=== PATIENT | female | born 1950 | race Asian ===

== ENCOUNTER 2016-08-02 19:13 | Inpatient (IN) | payer MEDICARE ==
[~2016-08-02] VITALS: Ht 139.7 cm; Wt 45.6 kg
[~2016-08-02 19:13] MED LIST: GLIM1TAB2 PO; NITR100C6; SIMV40TA3 PO
[2016-08-02 19:38] LABS: BASO # 0.1 x10^3/uL (0.0-0.2); BASO % 1 % (0-3); EOS % 1 % (0-3); HEMATOCRIT 40.5 % (36.0-47.0); HEMOGLOBIN 13.4 g/dL (12.0-15.5); LYMPH # 2.4 x10^3/uL (1.0-4.8); LYMPH % 23 % (24-48); MEAN CORPUSCULAR HEMOGLOBIN 29 pg (25-35); MEAN CORPUSCULAR HGB CONC 33 g/dL (31-37); MEAN CORPUSCULAR VOLUME 88 fL (79-100); MONO % 10 % (0-9); NEUT % 65 % (31-73); PLATELET COUNT 292 x10^3/uL (140-400); RED BLOOD COUNT 4.59 x10^6/uL (3.50-5.40); RED CELL DISTRIBUTION WIDTH 13.8 % (11.5-14.5); WHITE BLOOD COUNT 10.4 x10^3/uL (4.0-11.0)
[2016-08-02 20:11] LABS: CALCIUM 9.8 mg/dL (8.5-10.1); GFR 55.1; POTASSIUM 3.3 mmol/L (3.5-5.1)
[2016-08-02] MEDS ORDERED: IOHEXOL 300 MG/ML 100ML VIAL. IV ONE (21:30)
[2016-08-02] MEDS ORDERED: CONTRAST GIVEN MC PRN (21:45)
--- NOTE | 2016-08-02 22:40 | PHYS DOC ---
Past Medical History Past Medical History: Diabetes-Type II, High Cholesterol Past Surgical History: Other Additional Past Surgical Histo: left FA repair Adult General Chief Complaint Chief Complaint: CHEST PAIN HPI HPI 66-year-old female who states she's had worsening chest pressure and pain with some dyspnea throughout the day. She localizes her chest pressure to the right side of her chest and states it does radiate into her back somewhat. She denies any history significant cardiac disease. She denies any history of lung problems. Review of Systems Review of Systems Constitutional: Denies fever or chills [] Eyes: Denies change in visual acuity, redness, or eye pain [] HENT: Denies nasal congestion or sore throat [] Respiratory: Denies cough, has shortness of breath [] Cardiovascular: No additional information not addressed in HPI [] GI: Denies abdominal pain, nausea, vomiting, bloody stools or diarrhea [] : Denies dysuria or hematuria [] Musculoskeletal: Denies back pain or joint pain [] Integument: Denies rash or skin lesions [] Neurologic: Denies headache, focal weakness or sensory changes [] Endocrine: Denies polyuria or polydipsia [] Current Medications Current Medications Current Medications Medications (Trade) Dose Ordered Sig/Kaylee Start Time Stop Time Status Last Admin Dose Admin Info (Do NOT chart on this entry -- for MONITORING) 1 each PRN DAILY PRN 08/02/16 21:45 08/04/16 21:44 DC Iohexol (Omnipaque 300 Mg/ml) 75 ml 1X ONCE 08/02/16 21:30 08/02/16 21:32 DC 08/02/16 21:38 75 ML Allergies Allergies Allergies Coded Allergies Type Severity Reaction Last Updated Verified No Known Drug Allergies 07/17/16 No Physical Exam Physical Exam Constitutional: Well developed, well nourished, no acute distress, non-toxic appearance. [] HENT: Normocephalic, atraumatic, bilateral external ears normal, oropharynx moist, no oral exudates, nose normal. [] Eyes: PERRLA, EOMI, conjunctiva normal, no discharge. [] Neck: Normal range of motion, no tenderness, supple, no stridor. [] Cardiovascular:Heart rate regular rhythm, no murmur [] Lungs & Thorax: Bilateral breath sounds clear to auscultation [] Abdomen: Bowel sounds normal, soft, no tenderness, no masses, no pulsatile masses. [] Skin: Warm, dry, no erythema, no rash. [] Back: No tenderness, no CVA tenderness. [] Extremities: No tenderness, no cyanosis, no clubbing, ROM intact, no edema. [] Neurologic: Alert and oriented X 3, normal motor function, normal sensory function, no focal deficits noted. [] Psychologic: Affect normal, judgement normal, mood normal. [] Current Patient Data Vital Signs Vital Signs Date Time Temp Pulse Resp B/P Pulse Ox O2 Delivery O2 Flow Rate FiO2 08/02/16 22:15 86 14 151/72 96 Room Air 08/02/16 19:16 98.8 98.8 Lab Values Laboratory Tests Test 08/02/16 19:25 08/02/16 19:27 White Blood Count 10.4x10^3/uL (4.0-11.0) Red Blood Count 4.59x10^6/uL (3.50-5.40) Hemoglobin 13.4g/dL (12.0-15.5) Hematocrit 40.5% (36.0-47.0) Mean Corpuscular Volume 88fL (79-100) Mean Corpuscular Hemoglobin 29pg (25-35) Mean Corpuscular Hemoglobin Concent 33g/dL (31-37) Red Cell Distribution Width 13.8% (11.5-14.5) Platelet Count 292x10^3/uL (140-400) Neutrophils (%) (Auto) 65% (31-73) Lymphocytes (%) (Auto) 23% (24-48) L Monocytes (%) (Auto) 10% (0-9) H Eosinophils (%) (Auto) 1% (0-3) Basophils (%) (Auto) 1% (0-3) Neutrophils # (Auto) 6.8x10^3uL (1.8-7.7) Lymphocytes # (Auto) 2.4x10^3/uL (1.0-4.8) Monocytes # (Auto) 1.0x10^3/uL (0.0-1.1) Eosinophils # (Auto) 0.1x10^3/uL (0.0-0.7) Basophils # (Auto) 0.1x10^3/uL (0.0-0.2) D-Dimer (Meghann) 0.77ug/mlFEU (0.00-0.50) H Sodium Level 143mmol/L (136-145) Potassium Level 3.3mmol/L (3.5-5.1) L Chloride Level 102mmol/L (98-107) Carbon Dioxide Level 32mmol/L (21-32) Anion Gap 9 (6-14) Blood Urea Nitrogen 21mg/dL (7-20) H Creatinine 1.0mg/dL (0.6-1.0) Estimated GFR (Cockcroft-Gault) 55.1 Glucose Level 145mg/dL (70-99) H Calcium Level 9.8mg/dL (8.5-10.1) Troponin I Quantitative < 0.017ng/mL (0.000-0.055) POC Troponin I 0.00ng/ml (<0.08) Laboratory Tests 08/02/16 19:25 Laboratory Tests 08/02/16 19:25 EKG EKG EKG as interpreted by me shows a sinus rhythm with rate 86 bpm. There are noted T-wave inversions to leads V2, V3, V4, V5. There are no other acute ST findings on this EKG. There is evidence of a incomplete right bundle-branch block. Radiology/Procedures Radiology/Procedures CTA of chest demonstrated the followin. No evidence of pulmonary embolism or alternative acute pulmonary finding. 2. Mild emphysema and healed granulomatous disease. This includes a partially calcified nodule within the left lung base. 3. 4 mm nodule with possible faint calcification within the left lower lobe, also likely a granuloma. Followup can be performed according to Fleischner society criteria to confirm benignity if clinically indicated. 4. 1.4 cm stone within the right renal pelvis with suspected hydronephrosis, partially excluded from the field of view. There is a small focus of gas within the anterior upper midzone of the right kidney possibly due to recent instrumentation. Portable one view of the chest does not demonstrate any acute abnormality. Course & Med Decision Making Course & Med Decision Making Pertinent Labs and Imaging studies reviewed. (See chart for details) This 58-year-old female who had since of shortness of breath and some mild chest pain and elevated d-dimer had a CTA to rule out any acute pathology. CTA did rule out PE but it did demonstrate some right-sided hydronephrosis and a large renal stone. I indicated these findings to the hospitalist, Dr. López, who agreed to admit the patient for further evaluation and treatment with cardiology consult. EKG did not reveal any acute abnormalities. Her blood work was also nonrevealing including a set of cardiac enzymes. Dragon Disclaimer Dragon Disclaimer This electronic medical record was generated, in whole or in part, using a voice recognition dictation system. Departure Departure Impression: Primary Impression: Dyspnea Additional Impression: Chest pain Disposition: ADMITTED INPATIENT Admitting Physician: Trinidad López Condition: STABLE Referrals: TRINIDAD LÓPEZ MD (PCP) Problem Qualifiers ORVILLE ECKERT DO Aug 02, 2016 22:40
[2016-08-02] MEDS ORDERED: ACETAMINOPHEN 325 MG TABLET. PO PRN (22:45)
[2016-08-02] MEDS ORDERED: ONDANSETRON PF 4 MG/2 ML VIAL. IV PRN (22:45)
[2016-08-02 23:00] VITALS: BP 173/81
[2016-08-02] MEDS ORDERED: ASPIRIN 325 MG TABLET PO ONE (23:00)
--- NOTE | 2016-08-02 23:05 | RAD ---
PROCEDURE CT angiogram of the chest with intravenous contrast. HISTORY Shortness of breath. TECHNIQUE Computed tomographic images of the chest were obtained following the administration of 60 cc Omnipaque 300 intravenous contrast. Three-dimensional maximum intensity projection images were obtained. One or more of the following individualized dose reduction techniques were utilized for this examination: 1. Automated exposure control; 2. Adjustment of the mA and/or kV according to patient size; 3. Use of iterative reconstruction technique. COMPARISON None. FINDINGS There is no evidence of pulmonary embolism. There is no aortic aneurysm or dissection. The left vertebral artery originates directly from the aortic arch, a normal branching variant. There are several prominent mediastinal and hilar lymph nodes, none of which are pathologically enlarged. There is mild biapical pleural-parenchymal scarring. There are few calcified granulomas. There is a nodule with central calcification within the posterior left lower lobe measuring 1.4 cm, also likely a granuloma. There is linear soft tissue density extending toward the left hilum from this lesion, likely postinfectious. There is basilar atelectasis. There is no pneumothorax, effusion or consolidation. There is a 2 mm nodule within the right middle lobe along the pleural fissure, likely a benign intrafissural lymph node. There is a 4 mm nodule within the left lower lobe which may contain faint calcification. There is adjacent partially calcified granuloma along the left pleural fissure. There is no suspicious hepatic lesion. The spleen is unremarkable. The pancreas is unremarkable. There is slight abnormal configuration of the right adrenal gland, likely developmental. There is a 1.4 cm stone within the right renal pelvis with suspected hydronephrosis, partially included on the field of view. There is a 4 mm focus of gas within the anterior upper midzone of the right kidney, possibly due to recent instrumentation. There is aortic and aortic branch vessel atherosclerotic plaque. IMPRESSION 1. No evidence of pulmonary embolism or alternative acute pulmonary finding. 2. Mild emphysema and healed granulomatous disease. This includes a partially calcified nodule within the left lung base. 3. 4 mm nodule with possible faint calcification within the left lower lobe, also likely a granuloma. Followup can be performed according to Fleischner society criteria to confirm benignity if clinically indicated. 4. 1.4 cm stone within the right renal pelvis with suspected hydronephrosis, partially excluded from the field of view. There is a small focus of gas within the anterior upper midzone of the right kidney possibly due to recent instrumentation. Electronically signed by: Deana Aponte (Aug 02, 2016 23:04:00)
[2016-08-02] MEDS ORDERED: POTASSIUM CHLORIDE 20 MEQ TABLET.ER. PO ONE (23:30)
[2016-08-03] VITALS (7 sets, daily range): BP systolic 121–152; BP diastolic 64–83
--- NOTE | 2016-08-03 01:08 | ACF ---
Admission Forms Criteria CARDIOLOGY GRG Clinical Indications for Admission to Inpatient Care ( Place 'X' for any and all applicable criteria): Hospital admission is needed for appropriate care of the patient because of ANY ONE of the following (1): [ ] I. Hemodynamic instability as indicated by ALL of the following (1)(2)(3) (4)(5) [ ]a) Vital signs or other findings not as expected for chronic patient condition or baseline [ ]b) Instability indicated by ANY ONE of the following: [ ]i) Hypotension [ ]ii) Symptomatic Tachycardia unresponsive to treatment ( e.g., analgesia, fluids, sedation as indicated) [ ]iii) Inadequate perfusion indicated by ANY ONE of the following: [ ] 1) Lactic acidosis (> 2 mmol/L) [ ] 2) New abnormal capillary refill (> 3 seconds) [ ] 3) Reduced urine output [ ] 4) New altered mental status [ ]iv) Orthostatic vital sign changes unresponsive to treatment (e.g., fluids) [ ]v) IV inotropic or vasopressor medication required to maintain adequate blood pressure or perfusion [ ] II. Severe heart failure as indicated by ANY ONE of the following(17)(18) [ ]a) Respiratory distress [ ]b) Hypotension [ ]c) Anasarca (refractory to outpatient therapy) [ ]d) Cardiac arrhythmias of immediate concern [ ]e) Myocardial ischemia [ ] III. Cardiac arrhythmias or findings of immediate concern indicated by ANY ONE of the following (19)(20): [ ] a) Heart rhythms that are inherently dangerous or unstable indicated by ANY ONE of the following (21)(22)(23): [ ] i) Resuscitated ventricular fibrillation or cardiac arrest [ ] ii) Ventricular escape rhythm [ ] iii) Sustained ventricular tachycardia (30 seconds or more of ventricular rhythm at greater than 100 beats per minute) [ ] iv) Nonsustained ventricular tachycardia and ANY ONE of the following: [ ] 1) Suspected cardiac ischemia as cause or consequence of ventricular tachycardia [ ] 2) In setting of acute myocarditis [ ] b) Unstable cardiac conduction defects indicated by ANY ONE of the following(23)(24)(25) [ ] i) Type II second-degree atrioventricular block [ ]ii) Third-degree atrioventricular block [ ]iii) New-onset left bundle branch block with suspected myocardial ischemia [ ]c) Any heart rhythm and ANY ONE of the following (21)(22)(26)(27) (28) [ ] i) Continuous long-term ECG monitoring needed (e.g., initiation of drug requiring monitoring for more than 24 hours) [ ] ii) Patient has automatic implanted cardioverter defibrillator that is repeatedly firing, malfunctioning, or in need of immediate adjustment of settings beyond the scope of ambulatory or observation care [ ]d) Heart rhythms of concern due to ANY ONE of the following: [ ] i) Hypotension [ ] ii) Respiratory distress [ ] iii) Association with other significant symptoms (e.g., bradycardia with syncope or ongoing dizziness, supraventricular tachycardia with chest pain (14)(15)(17) [ ] IV. Monitoring for cardiac contusion beyond the scope of observation care needed [A](30)(31)(32) [ ] V. Surgical or device complication (e.g., valve replacement complication , pacemaker dysfunction) (35)(41)(44)(45)(46) [ ] . Inpatient palliative care needed. [B](49) Also use Inpatient Palliative Care Criteria [ ] VII. Nonbacterial thrombotic (marantic) endocarditis (36)(43)(47)(48) [X] VIII. Cardiology condition, symptom, or finding for which emergency and observation care has failed or are not considered appropriate. [ ] IX. Acute valvular disease requiring inpatient as indicated by ANY ONE of the following (41) [ ]a) Acute valvular regurgitation (42) [ ]b) Noninfectious valvulitis (43) [ ]c) Obstructive valve thrombosis [ ]d) Paravalvular leak [ ]e) Other significant valvular disorder remaining after emergency or observation level of care (as appropriate) [ ]X. Pericardial disease requiring inpatient treatment as indicated by ANY ONE of the following (33)(34)(35)(36)(37) [ ]a) Suspected tamponade (38)(39)(40) [ ]b) Hemopericardium [ ]c) Other significant pericardial disorder remaining after emergency or observation level of care (as appropriate) [ ] XI. Cardiac ischemia beyond scope of emergency and observation care. [ ] XII. Hypertension requiring inpatient treatment as indicated by ANY ONE of the following (6)(7)(8) [ ]a) SBP greater than 220 mm Hg or DBP greater than 120 mmHg despite treatment [ ]b) SBP greater than 140 mm Hg or DBP greater than 100 mm Hg with evidence of acute end organ damage as indicated by ANY ONE of the following [ ] i) Encephalopathy [ ] ii) Acute renal failure as indicated by new onset of ANY ONE of the following (9)(10)(11)(12)(13) [ ]1) 3-fold rise in serum creatinine from baseline [ ]2) Serum creatinine greater than 4 mg/dL ( 354 micromoles/L) with acute rise greater than 0.5 mg/dL (44.2 micromoles/L) [ ]3) Reduction of more than 75% in estimated glomerular filtration rate from baseline [ ]4) Estimated glomerular filtration rate less than 35 mL/min/1.73m2 (0.59 mL/sec/1.73m2) in child up to 18 years of age [ ]5) Cessation of urine output indicated by ALL of the following [ ]A. Adequate volume status [ ]B. Inadequate urine output as indicated by ANY ONE of the following [ ]a. Urine output less than 0.3 mL/kg/hr for 24 hours [ ]b. Anuria (urine output less than 0.1 mL/kg/hr) for 12 hours [ ] iii) Aortic dissection [ ] iv) Myocardial Ischemia [ ] v) Left ventricular heart failure [ ]vi) Retinal Hemorrhage [ ]vii) Other significant finding [ ]c) Hypertension in child requiring inpatient treatment as indicated by ALL of the following(14)(15)(16) [ ] i) Outpatient treatment not effective, not available, or not appropriate [ ]ii) SBP or DBP greater than 95th percentile for age [ ]iii) Evidence of acute end organ damage as indicated by ANY ONE of the following [ ]1) Altered mental status [ ]2) Acute renal failure as indicated by new onset of ANY ONE of the following(9)(10)(11)(12)(13) [ ]A. 3-fold rise in serum creatinine from baseline [ ]B. Serum creatinine greater than 4 mg/dL (354 micromoles/L) with acute rise greater than 0.5 mg/dL (44.2 micromoles/L) [ ]C. Reduction of more than 75% in estimated glomerular filtration rate from baseline [ ]D. Estimated glomerular filtration rate less than 35 mL/min/1.73m2 (0.59 mL/sec/1.73m2) in child up to 18 years of age [ ]E. Cessation of urine output indicated by ALL of the following [ ]a. Adequate volume status [ ]b. Inadequate urine output as indicated by ANY ONE of the following [ ]i) Urine output less than 0.3 mL/kg/hr for 24 hours [ ]ii) Anuria ( urine output less than 0.1 mL/kg/hr) for 12 hours [ ]3) Severe headache [ ]4) Visual disturbance [ ]5) Retinal hemorrhage [ ]6) Other significant finding [ ]XIII. Complications of transplanted heart indicated by ANY ONE of the following(61): [ ]a) Acute graft rejection requiring inpatient management (eg, intravenous immunosuppression)(62)(63) [ ]b) Acute graft heart failure indicated by ANY ONE of the following(64): [ ]i) Hemodynamic instability [ ]ii) Cardiac arrhythmias of immediate concern [ ]iii) Pulmonary edema that is very severe (eg, mechanical ventilation needed, imminent or likely, need for 100% oxygen to keep oxygen saturation above 90%) [ ]iv) Pulmonary edema that is persistent as indicated by ALL of the following: [ ]1) New need for oxygen therapy to keep oxygen saturation above 90% (or increased FiO2 need from baseline) [ ]2) Has not improved sufficiently with emergency department or observation care IV diuretics or other heart failure treatments[E] [ ]v) Altered mental status that is severe or persistent [ ]vi) Increased creatinine (new on laboratory test) with reduction of more than 50% in estimated glomerular filtration rate from baseline [ ]vii) Progressively (ongoing) rising creatinine (known from past laboratory test) with reduction of more than 25% in estimated glomerular filtration rate from baseline [ ]viii) Acute renal failure [ ]ix) Acute peripheral ischemia (eg, examination shows pulseless, cool, mottled, or cyanotic extremity) [ ]x) Pulmonary artery catheter monitoring needed [ ]xi) Other sign or symptom of heart failure requiring inpatient treatment (ie, too severe or not responsive to outpatient and observation care treatment) [ ]c) Infection requiring inpatient management (eg, Hemodynamic instability, need for intravenous antimicrobial treatment)(66)(67)(68)(69)(70) [ ]d) Cardiac allograft vasculopathy requiring inpatient management ( eg evidence of cardiac ischemia)(71) [ ]e) Other complication of transplanted heart (eg, stroke, severe pulmonary hypertension, severe valvular dysfunction) requiring inpatient management(72) The original [facility] content created by [facility] has been revised. The portions of the content which have been revised are identified through the use of italic text or in bold, and [facility] has neither reviewed nor approved the modified material. All other unmodified content is copyright [facility]. Please see references footnoted in the original [facility] edition 2016 Admission Criteria Met?: Yes MILEY MONCADA Aug 03, 2016 01:08
[2016-08-03 05:43] LABS: BASO # 0.1 x10^3/uL (0.0-0.2); BASO % 1 % (0-3); EOS % 2 % (0-3); HEMATOCRIT 39.7 % (36.0-47.0); HEMOGLOBIN 13.3 g/dL (12.0-15.5); LYMPH # 2.6 x10^3/uL (1.0-4.8); LYMPH % 31 % (24-48); MEAN CORPUSCULAR HEMOGLOBIN 29 pg (25-35); MEAN CORPUSCULAR HGB CONC 34 g/dL (31-37); MEAN CORPUSCULAR VOLUME 86 fL (79-100); MONO % 10 % (0-9); NEUT % 56 % (31-73); PLATELET COUNT 264 x10^3/uL (140-400); RED CELL DISTRIBUTION WIDTH 13.8 % (11.5-14.5); WHITE BLOOD COUNT 8.4 x10^3/uL (4.0-11.0)
[2016-08-03 05:57] LABS: CALCIUM 9.7 mg/dL (8.5-10.1); CREATININE 0.9 mg/dL (0.6-1.0); GFR 62.3; POTASSIUM 3.5 mmol/L (3.5-5.1)
--- NOTE | 2016-08-03 06:42 | EKG ---
[facility] [address] [place] [address] Test Date: 2016-08-02 Test Time: 19:20:54 Pat Name: ERASTO TATE Department: Room: 256 1 Gender: F Auriculotherapist: : 1950 Requested By: ORVILLE ECKERT Order Number: [id number] Reading MD: Marilu Gee Measurements Intervals [place] Rate: 86 P: 52 TN: 202 QRS: 43 QRSD: 100 T: 42 QT: 386 QTc: 465 Interpretive Statements SINUS RHYTHM INCOMPLETE RIGHT BUNDLE BRANCH BLOCK T ABNORMALITY IN ANTERIOR LEADS ABNORMAL ECG RI6.01 No previous ECG available for comparison Electronically Signed On 08-04-2016 0:25:42 [employer] by Marilu Gee
--- NOTE | 2016-08-03 08:44 | RAD ---
Portable chest, 08/02/2016: History: Dyspnea, chest pressure No previous chest radiographs are available at this time for comparison purposes. The heart is mildly enlarged. The pulmonary vascularity is normal. A calcified granuloma is present in the left base. No acute infiltrates are seen. There is no evidence of pleural fluid. There is a mild thoracic scoliosis with mild associated multilevel degenerative change. IMPRESSION: 1. Mild cardiomegaly. 2. No acute abnormality is detected.
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
[2016-08-03 10:41] LABS: CHOLESTEROL/HDL RATIO 2.4
--- NOTE | 2016-08-03 10:46 | PDOC ---
PROGRESS NOTES Subjective Subjective Pt awake and pleasant. Pt is a poor historian, however states chest pain/upper abdominal pain has been present x1 week. Pain is described as pressure that is improved with applying pressure to the area and also with eating. Denies associated s/s including diaphoresis or radiation of pain. Objective Objective Pt awake and alert. NAD. VSS. Afebrile. Lungs CTA bilat. Resp even and unlabored. Heart with RRr. No murmurs. No pedal edema. Abdomen is soft, nondistended, and nontender. Vital Signs Date Time Temp Pulse Resp B/P Pulse Ox O2 Delivery O2 Flow Rate FiO2 08/03/16 08:00 Room Air 08/03/16 07:00 98.4 87 18 124/65 94 98.4 Intake and Output 08/03/16 07:00 Intake Total 200 ml Balance 200 ml Intake Oral 200 ml # Voids 1 Assessment Assessment Problems Medical Problems: (1) Chest pain Status: Acute (2) Dyspnea Status: Acute Plan Plan of Care 1. Chest Pain -Pt poor historian. States food does make chest discomfort better. -Troponin negative -CTA negative for PE. Right renal stone noted with hydronephrosis. -Cardiology consulting -Echo today -Probable need for stress test following echo -GI consulted 2. Diabetes, type II -controlled on oral therapy -FSBS good 3. Right renal calculi with underlying hydronephrosis -noted on CTA -stone measures 1.4cm -CT renal stone protocol today Comment Review of Relevant I have reviewed the following items aga (where applicable) has been applied. Labs Laboratory Tests Test 08/02/16 19:25 08/02/16 19:27 08/03/16 05:05 White Blood Count 10.4x10^3/uL (4.0-11.0) 8.4x10^3/uL (4.0-11.0) Red Blood Count 4.59x10^6/uL (3.50-5.40) 4.60x10^6/uL (3.50-5.40) Hemoglobin 13.4g/dL (12.0-15.5) 13.3g/dL (12.0-15.5) Hematocrit 40.5% (36.0-47.0) 39.7% (36.0-47.0) Mean Corpuscular Volume 88fL (79-100) 86fL (79-100) Mean Corpuscular Hemoglobin 29pg (25-35) 29pg (25-35) Mean Corpuscular Hemoglobin Concent 33g/dL (31-37) 34g/dL (31-37) Red Cell Distribution Width 13.8% (11.5-14.5) 13.8% (11.5-14.5) Platelet Count 292x10^3/uL (140-400) 264x10^3/uL (140-400) Neutrophils (%) (Auto) 65% (31-73) 56% (31-73) Lymphocytes (%) (Auto) 23% (24-48) 31% (24-48) Monocytes (%) (Auto) 10% (0-9) 10% (0-9) Eosinophils (%) (Auto) 1% (0-3) 2% (0-3) Basophils (%) (Auto) 1% (0-3) 1% (0-3) Neutrophils # (Auto) 6.8x10^3uL (1.8-7.7) 4.7x10^3uL (1.8-7.7) Lymphocytes # (Auto) 2.4x10^3/uL (1.0-4.8) 2.6x10^3/uL (1.0-4.8) Monocytes # (Auto) 1.0x10^3/uL (0.0-1.1) 0.8x10^3/uL (0.0-1.1) Eosinophils # (Auto) 0.1x10^3/uL (0.0-0.7) 0.2x10^3/uL (0.0-0.7) Basophils # (Auto) 0.1x10^3/uL (0.0-0.2) 0.1x10^3/uL (0.0-0.2) D-Dimer (Meghann) 0.77ug/mlFEU (0.00-0.50) Sodium Level 143mmol/L (136-145) 141mmol/L (136-145) Potassium Level 3.3mmol/L (3.5-5.1) 3.5mmol/L (3.5-5.1) Chloride Level 102mmol/L (98-107) 103mmol/L (98-107) Carbon Dioxide Level 32mmol/L (21-32) 32mmol/L (21-32) Anion Gap 9 (6-14) 6 (6-14) Blood Urea Nitrogen 21mg/dL (7-20) 20mg/dL (7-20) Creatinine 1.0mg/dL (0.6-1.0) 0.9mg/dL (0.6-1.0) Estimated GFR (Cockcroft-Gault) 55.1 62.3 Glucose Level 145mg/dL (70-99) 117mg/dL (70-99) Calcium Level 9.8mg/dL (8.5-10.1) 9.7mg/dL (8.5-10.1) Troponin I Quantitative < 0.017ng/mL (0.000-0.055) < 0.017ng/mL (0.000-0.055) Bedside Troponin I 0.00ng/ml (<0.08) Laboratory Tests Test 08/02/16 19:25 08/02/16 19:27 08/03/16 05:05 White Blood Count 10.4x10^3/uL (4.0-11.0) 8.4x10^3/uL (4.0-11.0) Red Blood Count 4.59x10^6/uL (3.50-5.40) 4.60x10^6/uL (3.50-5.40) Hemoglobin 13.4g/dL (12.0-15.5) 13.3g/dL (12.0-15.5) Hematocrit 40.5% (36.0-47.0) 39.7% (36.0-47.0) Mean Corpuscular Volume 88fL (79-100) 86fL (79-100) Mean Corpuscular Hemoglobin 29pg (25-35) 29pg (25-35) Mean Corpuscular Hemoglobin Concent 33g/dL (31-37) 34g/dL (31-37) Red Cell Distribution Width 13.8% (11.5-14.5) 13.8% (11.5-14.5) Platelet Count 292x10^3/uL (140-400) 264x10^3/uL (140-400) Neutrophils (%) (Auto) 65% (31-73) 56% (31-73) Lymphocytes (%) (Auto) 23% (24-48) 31% (24-48) Monocytes (%) (Auto) 10% (0-9) 10% (0-9) Eosinophils (%) (Auto) 1% (0-3) 2% (0-3) Basophils (%) (Auto) 1% (0-3) 1% (0-3) Neutrophils # (Auto) 6.8x10^3uL (1.8-7.7) 4.7x10^3uL (1.8-7.7) Lymphocytes # (Auto) 2.4x10^3/uL (1.0-4.8) 2.6x10^3/uL (1.0-4.8) Monocytes # (Auto) 1.0x10^3/uL (0.0-1.1) 0.8x10^3/uL (0.0-1.1) Eosinophils # (Auto) 0.1x10^3/uL (0.0-0.7) 0.2x10^3/uL (0.0-0.7) Basophils # (Auto) 0.1x10^3/uL (0.0-0.2) 0.1x10^3/uL (0.0-0.2) D-Dimer (Meghann) 0.77ug/mlFEU (0.00-0.50) Sodium Level 143mmol/L (136-145) 141mmol/L (136-145) Potassium Level 3.3mmol/L (3.5-5.1) 3.5mmol/L (3.5-5.1) Chloride Level 102mmol/L (98-107) 103mmol/L (98-107) Carbon Dioxide Level 32mmol/L (21-32) 32mmol/L (21-32) Anion Gap 9 (6-14) 6 (6-14) Blood Urea Nitrogen 21mg/dL (7-20) 20mg/dL (7-20) Creatinine 1.0mg/dL (0.6-1.0) 0.9mg/dL (0.6-1.0) Estimated GFR (Cockcroft-Gault) 55.1 62.3 Glucose Level 145mg/dL (70-99) 117mg/dL (70-99) Calcium Level 9.8mg/dL (8.5-10.1) 9.7mg/dL (8.5-10.1) Troponin I Quantitative < 0.017ng/mL (0.000-0.055) < 0.017ng/mL (0.000-0.055) Bedside Troponin I 0.00ng/ml (<0.08) Medications Current Medications Iohexol (Omnipaque 300 Mg/ml) 75 ml 1X ONCE IV Last administered on 08/02/16 21:38; Start 08/02/16 at 21:30; Stop 08/02/16 at 21:32; Status DC Info (Do NOT chart on this entry -- for MONITORING) 1 each PRN DAILY PRN MC SEE COMMENTS; Start 08/02/16 at 21:45; Stop 08/04/16 at 21:44 Ondansetron HCl (Zofran) 4 mg PRN Q8HRS PRN IV NAUSEA/VOMITING; Start 08/02/16 at 22:45; Stop 08/03/16 at 22:44 Acetaminophen (Tylenol) 650 mg PRN Q4HRS PRN PO FEVER Last administered on 00:58; Start 08/02/16 at 22:45; Stop 08/03/16 at 22:44 Aspirin (Sb Aspirin) 325 mg 1X ONCE PO Last administered on 08/03/16 00:58 ; Start 08/02/16 at 23:00; Stop 08/02/16 at 23:01; Status DC Potassium Chloride (Klor-Con) 20 meq 1X ONCE PO Last administered on 08/03/16 00:58; Start 08/02/16 at 23:30; Stop 08/02/16 at 23:31; Status DC Active Scripts Active Reported Nitrofurantoin [place]-Mcr 100 Mg (Nitrofurantoin Monohyd/M-Cryst) 100 Mg Capsule Simvastatin 40 Mg Tablet 40 Mg PO HS Glimepiride 1 Mg Tablet 1 Mg PO DAILY Vitals/I & O Vital Sign - Last 24 Hours 08/02/16 08/02/16 08/02/16 08/02/16 19:16 19:50 20:20 20:50 Temp 98.8 98.8 Pulse 88 84 86 84 Resp 17 14 16 14 B/P 173/81 154/71 161/70 155/71 Pulse Ox 97 96 96 96 O2 Delivery Room Air Room Air Room Air Room Air 08/02/16 08/02/16 08/02/16 08/02/16 21:05 22:15 23:00 23:00 Temp 98.8 98.8 Pulse 86 86 86 88 Resp 15 14 14 B/P 146/65 151/72 154/72 173/81 Pulse Ox 96 96 96 97 O2 Delivery Room Air Room Air Room Air 08/03/16 08/03/16 08/03/16 08/03/16 00:06 01:30 01:36 03:30 Temp 98.2 98.0 98.2 98.0 Pulse 90 91 Resp 18 20 B/P 152/76 145/79 Pulse Ox 97 96 O2 Delivery Room Air Room Air Room Air Room Air 08/03/16 08/03/16 07:00 08:00 Temp 98.4 98.4 Pulse 87 Resp 18 B/P 124/65 Pulse Ox 94 O2 Delivery Room Air Room Air Intake and Output 08/02/16 08/02/16 08/03/16 15:00 23:00 07:00 Intake Total 200 ml Balance 200 ml TRINIDAD LÓPEZ MD Aug 03, 2016 10:46
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
--- NOTE | 2016-08-03 12:29 | RAD ---
Indication right renal stone demonstrated on CTA of the chest. Confirmation necessary. Axial images through the abdomen and pelvis were obtained. Note is made of the CT examination of the chest one day earlier. Evaluation of the abdomen and pelvis is slightly limited secondary to residual contrast in the kidneys and urinary bladder associated with that examination. An acute finding in either lung base is not seen. There is a densely calcified granuloma at the left lung base. There is a small amount of air in the urinary bladder. Additionally there is a small amount of air in the right renal pelvis and in an anterior upper calyx. These findings are probably secondary to recent instrumentation. Clinical correlation advised. There is a staghorn calculus in the right kidney measuring approximately 3.2 x 1.3 cm. There is a low-density 1 cm mass in the posterior inferior portion of the right kidney likely reflecting a small cyst. There is slight prominence of the upper pole calyx associated with the right kidney likely secondary to the staghorn calculus. There is no significant finding seen associated with the left kidney. There is no hydroureter or definite calcification seen along the course of either ureter. The urinary bladder, apart from the small amount of air already referenced, is unremarkable. The liver and spleen appear unremarkable. Vicarious excretion of contrast in the gallbladder is noted. There are no adrenal masses. The pancreas appears unremarkable. An acute finding in the abdomen is not seen. No acute finding is apparent in the pelvis. IMPRESSION: Right staghorn calculus. Slight prominence of the upper pole calyx is likely secondary to the calculus. Low-density mass associated with the right kidney most compatible with a cyst. Air in the right kidney and small amount of air in the urinary bladder probably secondary to recent instrumentation. Clinical correlation advised. PQRS Compliance Statement: One or more of the following individualized dose reduction techniques were utilized for this examination: 1. Automated exposure control 2. Adjustment of the mA and/or kV according to patient size 3. Use of iterative reconstruction technique
[2016-08-03] MEDS: GLIMEPIRIDE 2 MG TABLET PO SCH ×2 (14:00→18:18)
[2016-08-03] MEDS ORDERED: OXYC-323 PO (18:41)
[2016-08-03] MEDS ORDERED: DEXTROSE 50% 25 GM / 50ML DISP.SYRIN. IV PRN (19:15)
[2016-08-03] MEDS: SIMVASTATIN 40 MG TABLET. PO SCH (21:34)
[2016-08-04 03:30] VITALS: BP 132/78
[2016-08-04 07:00] VITALS: BP 125/70
--- NOTE | 2016-08-04 08:29 | CARD ---
APPROVED REPORT EXAM: Two-dimensional and M-mode echocardiogram with Doppler and color Doppler. Other Information Quality : Good INDICATION Dizziness and Vertigo Chest Pain 2D DIMENSIONS RVDd2.5 (2.9-3.5cm)Left Atrium(2D)3.2 (1.6-4.0cm) IVSd1.1 (0.7-1.1cm)Aortic Root(2D)2.5 (2.0-3.7cm) LVDd3.6 (3.9-5.9cm)LVOT Diameter1.8 (1.8-2.4cm) PWd0.9 (0.7-1.1cm)LVDs2.2 (2.5-4.0cm) FS (%) 30.0 %SV40.6 ml LVEF(%)60.0 (>50%) Aortic Valve AoV Peak Dexter.140.7cm/sAoV VTI25.1cm AO Peak GR.7.9mmHgLVOT VTI 22.95cm AO Mean GR.4mmHgAVA (VTI)2.30cm2 Mitral Valve MV E Zxeabwme65.0cm/sMV DECEL [id number] MV A Pjmfvsbl323.2cm/sE/A Ratio0.5 TDI Lateral E' P. V6.69cm/sMedial E' P. V5.86cm/s E/Lateral E'9.9E/Medial E'11.3 LEFT VENTRICLE The left ventricle is normal size. There is normal left ventricular wall thickness. Hyperdynamic left ventricular systolic function. The Ejection Fraction is 70%. There is normal LV segmental wall motio n. Transmitral Doppler flow pattern is Grade I-abnormal relaxation pattern. RIGHT VENTRICLE The right ventricle is normal size. The right ventricular systolic function is normal. ATRIA The left atrium size is normal. The right atrium size is normal. The interatrial septum is intact wit h no evidence for an atrial septal defect or patent foramen ovale as noted on 2-D or Doppler imaging. AORTIC VALVE The aortic valve is normal in structure and function. Doppler and Color Flow revealed no significant aortic regurgitation. There is no significant aortic valvular stenosis. MITRAL VALVE The mitral valve is normal in structure and function. There is no evidence of mitral valve prolapse. There is no mitral valve stenosis. Doppler and Color-flow revealed trace mitral regurgitation. TRICUSPID VALVE The tricuspid valve is normal in structure and function. Doppler and Color Flow revealed no tricuspid valve regurgitation noted. There is no tricuspid valve stenosis. PULMONIC VALVE The pulmonary valve is normal in structure and function. Doppler and Color Flow revealed no pulmonic valvular regurgitation. There is no pulmonic valvular stenosis. GREAT VESSELS The aortic root is normal in size. The ascending aorta is normal in size. The IVC is normal in size a nd collapses >50% with inspiration. PERICARDIAL EFFUSION There is no evidence of significant pericardial effusion. Critical Notification Critical Value: No <Conclusion> Hyperdynamic left ventricular systolic function. The Ejection Fraction is 70%. Transmitral Doppler flow pattern is Grade I-abnormal relaxation pattern. Trace mitral regurgitation. There is no evidence of significant pericardial effusion.
[2016-08-04] MEDS: GLIMEPIRIDE 2 MG TABLET PO SCH (08:51)
[2016-08-04] MEDS: OXYCODONE/APAP 5/325 TABLET. PO PRN ×2 (09:01→22:58)
--- NOTE | 2016-08-04 09:50 | PDOC ---
PROGRESS NOTES Subjective Subjective Pt awake and pleasant. Language barrier present. Family in room to help with translation. Pt states pain has resolved. Pt is eating and drinking without reoccurrence of pain. Objective Objective Pt awake and alert. NAD. VSS. Afebrile. Lungs CTA bilat. Resp even and unlabored. Heart with RRR. No murmurs. No pedal edema. Vital Signs Date Time Temp Pulse Resp B/P Pulse Ox O2 Delivery O2 Flow Rate FiO2 08/04/16 09:01 16 Room Air 08/04/16 07:00 98.2 88 125/70 97 98.2 Intake and Output 08/04/16 07:00 Intake Total 1300 ml Output Total 1000 ml Balance 300 ml Intake Oral 1300 ml Output Urine Total 1000 ml Assessment Assessment Problems Medical Problems: (1) Chest pain Status: Acute (2) Dyspnea Status: Acute Plan Plan of Care 1. Chest Pain -Pt poor historian. States food does make chest discomfort better. -Troponin negative -CTA negative for PE. Right renal stone noted with hydronephrosis. -Cardiology consulting -Echo with 70% EF and trace mitral regurg -Probable need for stress test following echo -GI consulted -signed off on 08/03 as do not feel s/s are GI related 2. Diabetes, type II -controlled on oral therapy -FSBS good 3. Right renal calculi with underlying hydronephrosis -noted on CTA -stone measures 1.4cm -CT renal stone protocol: Right staghorn calculus. Slight prominence of the upper pole calyx is likely secondary to the calculus. Low-density mass associated with the right kidney most compatible with a cyst. Air in the right kidney and small amount of air in the urinary bladder probably secondary to recent instrumentation. Clinical correlation advised. -Will plan to refer pt to outpt Urology upon Dc from hospital Hopeful for Dc home tomorrow am following complete Cardiology w/u. Will plan on setting pt up with outpt Urology following Dc. Comment Review of Relevant I have reviewed the following items aga (where applicable) has been applied. Labs Laboratory Tests Test 08/02/16 19:25 08/02/16 19:27 08/03/16 05:05 08/03/16 10:35 White Blood Count 10.4x10^3/uL (4.0-11.0) 8.4x10^3/uL (4.0-11.0) Red Blood Count 4.59x10^6/uL (3.50-5.40) 4.60x10^6/uL (3.50-5.40) Hemoglobin 13.4g/dL (12.0-15.5) 13.3g/dL (12.0-15.5) Hematocrit 40.5% (36.0-47.0) 39.7% (36.0-47.0) Mean Corpuscular Volume 88fL (79-100) 86fL (79-100) Mean Corpuscular Hemoglobin 29pg (25-35) 29pg (25-35) Mean Corpuscular Hemoglobin Concent 33g/dL (31-37) 34g/dL (31-37) Red Cell Distribution Width 13.8% (11.5-14.5) 13.8% (11.5-14.5) Platelet Count 292x10^3/uL (140-400) 264x10^3/uL (140-400) Neutrophils (%) (Auto) 65% (31-73) 56% (31-73) Lymphocytes (%) (Auto) 23% (24-48) 31% (24-48) Monocytes (%) (Auto) 10% (0-9) 10% (0-9) Eosinophils (%) (Auto) 1% (0-3) 2% (0-3) Basophils (%) (Auto) 1% (0-3) 1% (0-3) Neutrophils # (Auto) 6.8x10^3uL (1.8-7.7) 4.7x10^3uL (1.8-7.7) Lymphocytes # (Auto) 2.4x10^3/uL (1.0-4.8) 2.6x10^3/uL (1.0-4.8) Monocytes # (Auto) 1.0x10^3/uL (0.0-1.1) 0.8x10^3/uL (0.0-1.1) Eosinophils # (Auto) 0.1x10^3/uL (0.0-0.7) 0.2x10^3/uL (0.0-0.7) Basophils # (Auto) 0.1x10^3/uL (0.0-0.2) 0.1x10^3/uL (0.0-0.2) D-Dimer (Meghann) 0.77ug/mlFEU (0.00-0.50) Sodium Level 143mmol/L (136-145) 141mmol/L (136-145) Potassium Level 3.3mmol/L (3.5-5.1) 3.5mmol/L (3.5-5.1) Chloride Level 102mmol/L (98-107) 103mmol/L (98-107) Carbon Dioxide Level 32mmol/L (21-32) 32mmol/L (21-32) Anion Gap 9 (6-14) 6 (6-14) Blood Urea Nitrogen 21mg/dL (7-20) 20mg/dL (7-20) Creatinine 1.0mg/dL (0.6-1.0) 0.9mg/dL (0.6-1.0) Estimated GFR (Cockcroft-Gault) 55.1 62.3 Glucose Level 145mg/dL (70-99) 117mg/dL (70-99) Calcium Level 9.8mg/dL (8.5-10.1) 9.7mg/dL (8.5-10.1) Troponin I Quantitative < 0.017ng/mL (0.000-0.055) < 0.017ng/mL (0.000-0.055) < 0.017ng/mL (0.000-0.055) Bedside Troponin I 0.00ng/ml (<0.08) Triglycerides Level 89mg/dL (0-150) Cholesterol Level 156mg/dL (0-200) LDL Cholesterol, Calculated 72mg/dL (0-100) VLDL Cholesterol, Calculated 18mg/dL (0-40) HDL Cholesterol 66mg/dL (40-60) Cholesterol/HDL Ratio 2.4 Test 08/03/16 12:52 08/03/16 20:54 08/04/16 08:30 Glucose (Fingerstick) 155mg/dL (70-99) 145mg/dL (70-99) 174mg/dL (70-99) Laboratory Tests Test 08/03/16 10:35 08/03/16 12:52 08/03/16 20:54 08/04/16 08:30 Troponin I Quantitative < 0.017ng/mL (0.000-0.055) Glucose (Fingerstick) 155mg/dL (70-99) 145mg/dL (70-99) 174mg/dL (70-99) Medications Current Medications Iohexol (Omnipaque 300 Mg/ml) 75 ml 1X ONCE IV Last administered on 08/02/16 21:38; Start 08/02/16 at 21:30; Stop 08/02/16 at 21:32; Status DC Info (Do NOT chart on this entry -- for MONITORING) 1 each PRN DAILY PRN MC SEE COMMENTS; Start 08/02/16 at 21:45; Stop 08/04/16 at 21:44 Ondansetron HCl (Zofran) 4 mg PRN Q8HRS PRN IV NAUSEA/VOMITING; Start 08/02/16 at 22:45; Stop 08/03/16 at 22:44; Status DC Acetaminophen (Tylenol) 650 mg PRN Q4HRS PRN PO FEVER Last administered on 00:58; Start 08/02/16 at 22:45; Stop 08/03/16 at 22:44; Status DC Aspirin (Sb Aspirin) 325 mg 1X ONCE PO Last administered on 08/03/16 00:58 ; Start 08/02/16 at 23:00; Stop 08/02/16 at 23:01; Status DC Potassium Chloride (Klor-Con) 20 meq 1X ONCE PO Last administered on 08/03/16 00:58; Start 08/02/16 at 23:30; Stop 08/02/16 at 23:31; Status DC Simvastatin (Zocor) 40 mg HS PO Last administered on 08/03/16 21:34; Start 08/03 at 21:00 Glimepiride (Amaryl) 1 mg DAILY PO Last administered on 08/04/16 08:51; Start 08/03/16 at 14:00 Oxycodone/ Acetaminophen (Percocet 5/325) 1 tab PRN Q4HRS PRN PO PAIN Last administered on 08/04/16 09:01; Start 08/03/16 at 19:15 Dextrose 12.5 gm PRN Q15MIN PRN IV SEE COMMENTS; Start 08/03/16 at 19:15 Active Scripts Active Reported Percocet 5-325 Mg Tablet (Oxycodone/Acetaminophen) 1 Each Tablet 1 Tab PO Q4- 6HRS Nitrofurantoin [place]-Mcr 100 Mg (Nitrofurantoin Monohyd/M-Cryst) 100 Mg Capsule Simvastatin 40 Mg Tablet 40 Mg PO HS Glimepiride 1 Mg Tablet 1 Mg PO DAILY Vitals/I & O Vital Sign - Last 24 Hours 08/03/16 08/03/16 08/03/16 08/03/16 11:00 15:00 19:45 20:30 Temp 98.2 97.8 97.9 98.2 97.8 97.9 Pulse 90 90 93 Resp 18 18 18 B/P 121/71 133/64 139/83 Pulse Ox 95 96 95 O2 Delivery Room Air Room Air Room Air Room Air 08/03/16 08/04/16 08/04/16 08/04/16 23:10 03:30 07:00 08:00 Temp 98.1 97.6 98.2 98.1 97.6 98.2 Pulse 89 82 88 Resp 16 B/P 144/81 132/78 125/70 Pulse Ox 96 94 97 O2 Delivery Room Air Room Air Room Air Room Air 08/04/16 09:01 Resp 16 O2 Delivery Room Air Intake and Output 08/03/16 08/03/16 08/04/16 15:00 23:00 07:00 Intake Total 500 ml 800 ml Output Total 500 ml 500 ml Balance 0 ml 300 ml TRINIDAD LÓPEZ MD Aug 04, 2016 09:50
--- NOTE | 2016-08-04 10:12 | PDOC ---
Subjective: Subjective: Per pt - had a little pain last night but none today. Eating well. Feels ready to DC. Objective: Objective: Per RN - pt denies pain, doing well. Vital Signs: Vital Signs Date Time Temp Pulse Resp B/P Pulse Ox O2 Delivery O2 Flow Rate FiO2 08/04/16 09:01 16 Room Air 08/04/16 07:00 98.2 88 125/70 97 98.2 Labs: Laboratory Tests Test 08/03/16 12:52 08/03/16 20:54 08/04/16 08:30 Glucose (Fingerstick) 155mg/dL (70-99) 145mg/dL (70-99) 174mg/dL (70-99) Imaging: CT A/P w/o contrast 08/03/16 IMPRESSION: Right staghorn calculus. Slight prominence of the upper pole calyx is likely secondary to the calculus. Low-density mass associated with the right kidney most compatible with a cyst. Air in the right kidney and small amount of air in the urinary bladder probably secondary to recent instrumentation. Echocardiogram 08/03/16 <Conclusion> Hyperdynamic left ventricular systolic function. The Ejection Fraction is 70%. Transmitral Doppler flow pattern is Grade I-abnormal relaxation pattern. Trace mitral regurgitation. There is no evidence of significant pericardial effusion. PE: GEN: NAD, sitting on edge of bed sponge-bathing LUNGS: CTAB HEART: RRR ABD: NABS, S/ND/NT NEURO/PSYCH: A & O 3 OTHER: present A/P: Chest/epigastric pain - resolved -previously discussed trial of PPI/H2 chris if symptoms persisted -- Note plans for possible DC tomorrow. ERASMO CAMACHO Aug 04, 2016 10:12
--- NOTE | 2016-08-04 10:54 | HP ---
ADMIT DATE: 08/03/2016 CHIEF COMPLAINT AND HISTORY OF PRESENT ILLNESS: This is a 66-year-old female who is well known to me from followup in the clinic. The patient presented to the Emergency Room on the day of admission with 1 week history of chest pain/upper GI discomfort. The patient stated that the pain had been present for a week and describes the pain as a squeezing sensation. Upon questioning out first, the patient stated that the pain was worsened by eating and she had been afraid to eat; however, upon questioning later on, the patient stated that food tended to make the pain better. The patient denied any radiation of the pain. The patient also denied any palpitation, diaphoresis or nausea, vomiting associated with the pain. Of note, the patient did sustain a mechanical fall on 07/20/2016 and sustained a left forearm fracture, not required surgical repair. The patient has been on oral pain medication; however, reports regular bowel movements and well control of the forearm pain. Upon evaluation in the Emergency Room, an EKG was completed that revealed normal sinus rhythm with a rate of 86 beats per minute, no other ST findings were noted. Laboratory findings were relatively within normal limits. The patient was admitted to the hospital for further evaluation and treatment of her chest pain. PAST MEDICAL HISTORY: Left forearm fracture on 07/20/2016 requiring surgical repair. Medical history also reveals diabetes type 2, well controlled on oral agents as well as dyslipidemia. ALLERGIES: The patient has no known drug allergies. SOCIAL HISTORY: There is a language barrier present; however, family is in attendance and helps with translation. The patient is a nonsmoker and nondrinker and does not use illicit drugs. REVIEW OF SYSTEMS: As mentioned above. PHYSICAL EXAMINATION: GENERAL: She is a well-developed and well-nourished female in no apparent distress in the morning of my evaluation. VITAL SIGNS: Stable. She is afebrile. HEENT: Unremarkable. NECK: Supple, without adenopathy or thyromegaly. CHEST: Clear to auscultation. HEART: Regular rate and rhythm without S3, S4 or murmur. ABDOMEN: Soft, nontender and nondistended. The patient does state that gentle pressure on her upper epigastric region does alleviate some of the discomfort. There is no hepatosplenomegaly or mass present. EXTREMITIES: Without cyanosis, clubbing or edema. NEUROLOGIC: Grossly intact. IMPRESSION: Chest pain. PLAN: The patient has been admitted. Cardiology as well as GI have been consulted to help in evaluation of the patient. The patient's home medications have been restarted. We will a CT of the chest to rule out any pulmonary emboli. The patient will be monitored, managed and treated appropriately during her hospitalization. TRINIDAD LÓPEZ MD DR: LINETTE/jacob JOB#: [id number] / [id number]
[2016-08-04 11:00] VITALS: BP 121/69
--- NOTE | 2016-08-04 12:25 | PDOC ---
CARDIO Progress Notes Date and Time Date of Service 08/04/16 Time of Evaluation 1045 Subjective Subjective: No Chest Pain, No shortness of breath, No Palpitations, Other ( squeezing abdominal pain gone this morning; feels good. ) Vitals Vitals Vital Signs Date Time Temp Pulse Resp B/P Pulse Ox O2 Delivery O2 Flow Rate FiO2 08/04/16 11:00 98.2 83 16 121/69 96 Room Air 98.2 Weight Weight [ ] Input and Output Intake and Output Intake and Output 08/04/16 07:00 Intake Total 1300 ml Output Total 1000 ml Balance 300 ml Intake Oral 1300 ml Output Urine Total 1000 ml Laboratory Labs Laboratory Tests Test 08/03/16 12:52 08/03/16 20:54 08/04/16 08:30 Glucose (Fingerstick) 155mg/dL (70-99) 145mg/dL (70-99) 174mg/dL (70-99) Physical Exam HEENT: Neck Supple W Full Motion Chest: Symmetric LUNGS: Clear to Auscultation Heart: S1S2, RRR, no murmurs Abdomen: Normal Aortic Impulse Extremities: No Edema, No Calf Tenderness Neurology: alert, oriented, follow commands Assessment Assessment 1. Chest Pain troponin series negative- AMI ruled out Echo with hyperdynamic LV systolic function; EF 70%. Will proceed with stress test in am to r/o underlying ischemia 2. Hypertension well-controlled 3. Hyperlipidemia LDL = 72 continue statin therapy 3. Diabetes type II on oral therapy per PCP 4. Right renal stoneRight staghorn calculus. measuring 1.4cm with suspected hydronephrosis per chest CTA; no evidence of PE CT abd/pelvis notable for right staghorn calculus. 5. Epigastric pain resolved. per KARYN LUQUE APRN Aug 04, 2016 12:25
[2016-08-04 15:00] VITALS: BP 118/69
[2016-08-04 19:00] VITALS: BP 142/71
[2016-08-04] MEDS: SIMVASTATIN 40 MG TABLET. PO SCH (20:25)
[2016-08-04 23:19] VITALS: BP 140/71
[2016-08-05 03:45] VITALS: BP 126/61
[2016-08-05 07:00] VITALS: BP 114/58
[2016-08-05] MEDS ORDERED: REGADENOSON 0.4 MG/5 ML DISP.SYRIN. IV ONE (07:45)
[2016-08-05] MEDS: OXYCODONE/APAP 5/325 TABLET. PO PRN (09:28)
[2016-08-05] MEDS: GLIMEPIRIDE 2 MG TABLET PO SCH (09:28)
--- NOTE | 2016-08-05 09:32 | PDOC ---
PROGRESS NOTES Subjective Subjective Pt awake and pleasant this am. States s/s of chest and abdominal pain have relieved. Pt states she has been eating and drinking well with normal output. Objective Objective Pt awake and alert. NAD at rest. VSS. Afebrile. Lungs CTA bilat. Resp even and unlabored. Heart with RRR. No murmurs. Vital Signs Date Time Temp Pulse Resp B/P Pulse Ox O2 Delivery O2 Flow Rate FiO2 08/05/16 07:00 98.5 86 18 114/58 96 Room Air 98.5 Intake and Output 08/05/16 07:00 Intake Total 240 ml Output Total 400 ml Balance -160 ml Intake Oral 240 ml Output Urine Total 400 ml # Voids 4 Assessment Assessment Problems Medical Problems: (1) Chest pain Status: Acute (2) Dyspnea Status: Acute Plan Plan of Care 1. Chest Pain -Pt poor historian. S/s now resolved -Troponin negative -CTA negative for PE. Right renal stone noted with hydronephrosis. -Cardiology consulting -Echo with 70% EF and trace mitral regurg -Stress test this am pending -GI consulted -signed off on 08/03 as do not feel s/s are GI related 2. Diabetes, type II -controlled on oral therapy -FSBS good 3. Right renal calculi with underlying hydronephrosis -noted on CTA -stone measures 1.4cm -CT renal stone protocol: Right staghorn calculus. Slight prominence of the upper pole calyx is likely secondary to the calculus. Low-density mass associated with the right kidney most compatible with a cyst. Air in the right kidney and small amount of air in the urinary bladder probably secondary to recent instrumentation. Clinical correlation advised. -Will plan to refer pt to outpt Urology upon Dc from hospital If stress test normal and Cardiology has no other recommendations, will plan to Dc pt home this afternoon. Upon Dc, ADA diet and activity as tolerated. Resume previous home medications with the exception of Nitrofurantoin. Pt will need a f /u visit in our office in 1 weeks. Comment Review of Relevant I have reviewed the following items aga (where applicable) has been applied. Labs Laboratory Tests Test 08/03/16 10:35 08/03/16 12:52 08/03/16 20:54 08/04/16 08:30 Troponin I Quantitative < 0.017ng/mL (0.000-0.055) Glucose (Fingerstick) 155mg/dL (70-99) 145mg/dL (70-99) 174mg/dL (70-99) Test 08/04/16 11:17 08/04/16 16:35 08/04/16 21:02 08/05/16 07:36 Glucose (Fingerstick) 163mg/dL (70-99) 82mg/dL (70-99) 153mg/dL (70-99) 111mg/dL (70-99) Laboratory Tests Test 08/04/16 11:17 08/04/16 16:35 08/04/16 21:02 08/05/16 07:36 Glucose (Fingerstick) 163mg/dL (70-99) 82mg/dL (70-99) 153mg/dL (70-99) 111mg/dL (70-99) Medications Current Medications Iohexol (Omnipaque 300 Mg/ml) 75 ml 1X ONCE IV Last administered on 08/02/16 21:38; Start 08/02/16 at 21:30; Stop 08/02/16 at 21:32; Status DC Info (Do NOT chart on this entry -- for MONITORING) 1 each PRN DAILY PRN MC SEE COMMENTS; Start 08/02/16 at 21:45; Stop 08/04/16 at 21:44; Status DC Ondansetron HCl (Zofran) 4 mg PRN Q8HRS PRN IV NAUSEA/VOMITING; Start 08/02/16 at 22:45; Stop 08/03/16 at 22:44; Status DC Acetaminophen (Tylenol) 650 mg PRN Q4HRS PRN PO FEVER Last administered on 00:58; Start 08/02/16 at 22:45; Stop 08/03/16 at 22:44; Status DC Aspirin (Sb Aspirin) 325 mg 1X ONCE PO Last administered on 08/03/16 00:58 ; Start 08/02/16 at 23:00; Stop 08/02/16 at 23:01; Status DC Potassium Chloride (Klor-Con) 20 meq 1X ONCE PO Last administered on 08/03/16 00:58; Start 08/02/16 at 23:30; Stop 08/02/16 at 23:31; Status DC Simvastatin (Zocor) 40 mg HS PO Last administered on 08/04/16 20:25; Start 08/03 at 21:00 Glimepiride (Amaryl) 1 mg DAILY PO Last administered on 08/04/16 08:51; Start 08/03/16 at 14:00 Oxycodone/ Acetaminophen (Percocet 5/325) 1 tab PRN Q4HRS PRN PO PAIN Last administered on 08/04/16 22:58; Start 08/03/16 at 19:15 Dextrose 12.5 gm PRN Q15MIN PRN IV SEE COMMENTS; Start 08/03/16 at 19:15 Regadenoson (Lexiscan) 0.4 mg 1X ONCE IV Last administered on 08/05/16 08:45; Start 08/05/16 at 07:45; Stop 08/05/16 at 07:48; Status DC Active Scripts Active Reported Percocet 5-325 Mg Tablet (Oxycodone/Acetaminophen) 1 Each Tablet 1 Tab PO Q4- 6HRS Nitrofurantoin [place]-Mcr 100 Mg (Nitrofurantoin Monohyd/M-Cryst) 100 Mg Capsule Simvastatin 40 Mg Tablet 40 Mg PO HS Glimepiride 1 Mg Tablet 1 Mg PO DAILY Vitals/I & O Vital Sign - Last 24 Hours 08/04/16 08/04/16 08/04/16 08/04/16 10:10 11:00 15:00 19:00 Temp 98.2 98.3 97.9 98.2 98.3 97.9 Pulse 83 84 95 Resp 16 16 16 16 B/P 121/69 118/69 142/71 Pulse Ox 96 95 94 O2 Delivery Room Air Room Air Room Air Room Air 08/04/16 08/04/16 08/04/16 08/05/16 20:00 22:58 23:19 03:45 Temp 97.8 98.3 97.8 98.3 Pulse 89 78 Resp 22 20 18 B/P 140/71 126/61 Pulse Ox 97 95 O2 Delivery Room Air Room Air Room Air 08/05/16 07:00 Temp 98.5 98.5 Pulse 86 Resp 18 B/P 114/58 Pulse Ox 96 O2 Delivery Room Air Intake and Output 08/04/16 08/04/16 08/05/16 15:00 23:00 07:00 Intake Total 240 ml Output Total 400 ml Balance -400 ml 240 ml TRINIDAD LÓPEZ MD Aug 05, 2016 09:32
[2016-08-05 11:00] VITALS: BP 114/61
--- NOTE | 2016-08-05 11:02 | PDOC ---
Subjective: Subjective: Per RN - had some abd discomfort prior to stress test after Lexiscan administration, probably DC today. Per pt - had some abd discomfort and headache prior to stress test, now resolved , feeling good. Objective: Vital Signs: Vital Signs Date Time Temp Pulse Resp B/P Pulse Ox O2 Delivery O2 Flow Rate FiO2 08/05/16 09:28 96 Room Air 08/05/16 07:00 98.5 86 18 114/58 98.5 Labs: Laboratory Tests Test 08/04/16 11:17 08/04/16 16:35 08/04/16 21:02 08/05/16 07:36 Glucose (Fingerstick) 163mg/dL (70-99) 82mg/dL (70-99) 153mg/dL (70-99) 111mg/dL (70-99) Imaging: Stress test 08/05/16 PENDING PE: GEN: NAD, laying in bed, daughter present LUNGS: CTAB HEART: RRR ABD: NABS, S/ND/NT NEURO/PSYCH: A & O 3 A/P: Chest/epigastric pain - resolved -- Possible DC today w/ pending stress test. Consider outpatient workup if indicated. ERASMO CAMACHO Aug 05, 2016 11:01
--- NOTE | 2016-08-05 11:53 | RAD ---
APPROVED REPORT Test Type: Pharmacological Stress Nurse/Tech: Patsy Felix R.N. Test Indications: dyspnea, chest discomfort Cardiac History: No known cardiac Medications: See Electronic Medical Record Medical History: See Electronic Medical Record Resting ECG: SR w/ inverted T waves in most of the leads Resting Heart Rate: 85 bpm Resting Blood Pressure: 130/68mmHg Pretest Chest Pain: No chest pain Nurse/Tech Notes S1S2, lungs CTA Consent: The procedure was explained to the patient in lay terms. Informed consent was witnessed. Dominguez eout was entered into [employer]. History and Stress Test performed by MARTINA Linares Pharm. Details Pharmacologic stress testing was performed using 0.4mg per 5ml of regadenoson given intravenously ove r 7-10 seconds. Stress Symptoms Dyspnean H/A, stomach discomfort POST EXERCISE Reason for Termination: Infusion complete Max HR: 113 bpm Max Blood Pressure: 121/50mmHg Blood Pressure response to exercise: Normal blood pressure response during stress. Heart Rate response to exercise: wnl Chest Pain: No. Arrhythmia: No. ST Change: No. INTERPRETATION Stress EKG Conclusion: Non-specific ST/T changes. Imaging Protocol IMAGE PROTOCOL: Rest Tc-99m/stress Tc-99m 1 day Rest: Stress: Viability: Radiopharm.Tc99m [id number] Sestamibi [id number] 34mCi Duration 15min. 10min. Img Date 08/05/2016 08/05/2016 Inj-Img [id number]. 60min. Rest Admin Site:IV - Right AntecubitalAdministrator:RT Panda (R)(N) Stress Admin Site: IV - Right AntecubitalAdministrator: MARTINA Linares STRESS DATA End Diast. Vol.41.0mlAv. Heart Lshz262.0bpm End Syst. Vol.2.0mlCO Index BSA0.0L/min Myocardial Mass82.0gEject. Lctxpjtc39.0% Stress Rates Pk. Fill Rate4.96EDV/secLVtime Pk. Fill 123.49msec Pk. Empty Rate7.58ESV/secLVtime Pk. Eject71.44msec 08/03 Pk. Fill2.10EDV/sec Stress Scores Regional WT0.00Summed WT0.00 Regional WM0.00Summed WM0.00 The rest and stress images show normal perfusion, normal contraction and thickening. LV Perf. Quant 17 Seg. SSS0.00 17 Seg. SRS0.00 17 Seg. SDS0.00 Stress Defect Extent (% LAD)0.00Rest Defect Extent (% LAD)0.00Rev. Defect Extent (% LAD)0.00 Stress Defect Extent (% LCX) 0.00Rest Defect Extent (% LCX)0.00Rev. Defect Extent (% LCX)0.00 Stress Defect Extent (% RCA)0.00Rest Defect Extent (% RCA)0.00Rev. Defect Extent (% RCA)0.00 Stress Defect Extent (% SAMARA)0.00Rest Defect Extent (% SAMARA)0.00Rev. Defect Extent (% SAMARA)0.00 Other Information Quality:Good Risk Assessment: Low Risk Conclusion 1. No evidence of stress induced EKG changes 2. Normal myocardial perfusion at stress/rest 3. Low risk study 4. EF preserved at > 75%
--- NOTE | 2016-08-05 13:25 | PDOC ---
CARDIO Progress Notes Date and Time Date of Service 08/05/16 Time of Evaluation 1330 Subjective Subjective: No Chest Pain, No shortness of breath, No Palpitations, Other (no complaints; feels good) Vitals Vitals Vital Signs Date Time Temp Pulse Resp B/P Pulse Ox O2 Delivery O2 Flow Rate FiO2 08/05/16 11:00 98.4 98 18 114/61 95 Room Air 98.4 Weight Weight [ ] Input and Output Intake and Output Intake and Output 08/05/16 07:00 Intake Total 240 ml Output Total 400 ml Balance -160 ml Intake Oral 240 ml Output Urine Total 400 ml # Voids 4 Laboratory Labs Laboratory Tests Test 08/04/16 16:35 08/04/16 21:02 08/05/16 07:36 08/05/16 12:10 Glucose (Fingerstick) 82mg/dL (70-99) 153mg/dL (70-99) 111mg/dL (70-99) 209mg/dL (70-99) Physical Exam HEENT: Neck Supple W Full Motion Chest: Symmetric LUNGS: Clear to Auscultation Heart: S1S2, RRR, no murmurs Abdomen: Normal Aortic Impulse Extremities: No Edema, No Calf Tenderness Neurology: alert, oriented, follow commands Assessment Assessment 1. Chest Pain troponin series negative- AMI ruled out Echo with hyperdynamic LV systolic function; EF 70%. MPI with no evidence of ischemia, may discharge home from a cardiac standpoint. 2. Hypertension well-controlled 3. Hyperlipidemia LDL = 72 continue statin therapy 3. Diabetes type II on oral therapy per PCP 4. Right renal stoneRight staghorn calculus. measuring 1.4cm with suspected hydronephrosis per chest CTA; no evidence of PE CT abd/pelvis notable for right staghorn calculus. 5. Epigastric pain resolved. per KARYN LUQUE APRN Aug 05, 2016 13:25
[2016-08-05 15:00] VITALS: BP 113/60
== END 2016-08-05 16:30 | disposition home or self-care (01) | DRG 392 ==
LOC: ER 19:13 → 2 SOUTH 22:35
PROVIDERS: ADMIT Family Medicine; ATTEND Family Medicine
DX: K21.9 Gastro-esophageal reflux disease without esophagitis (principal); N13.2 Hydronephrosis with renal and ureteral calculous obstruction; E11.9 Type 2 diabetes mellitus without complications; E78.00 Pure hypercholesterolemia, unspecified; E78.5 Hyperlipidemia, unspecified; I10 Essential (primary) hypertension; Z79.82 Long term (current) use of aspirin; Z80.7 Family history of other malignant neoplasms of lymphoid, hematopoietic and related tissues; Z87.442 Personal history of urinary calculi
CPT/HCPCS: 36415; 71010; 71275; 74176; 78452; 80048; 80061; 82947; 84484; 85027; 85379; 93005; 93017; 93306; 96374; 96376; A9500; J2785; Q9967; 99285-25

== ENCOUNTER → 2017-05-09 | Outpatient (CLI) | payer MEDICARE ==
[~2017-05-09] MED LIST changes: +HYDR-2758 PO; +LISI10TA2 PO; +OXYC-323 PO
--- NOTE | 2017-05-09 13:53 | PAIN ---
DATE OF SERVICE: 05/09/2017 CHIEF COMPLAINT: Neck pain. HISTORY OF PRESENT ILLNESS: This is a 66-year-old female who presents with history of pain in the base of the neck radiating to bilateral shoulders times about 6 months or so. The patient reports it began in November, was not result of any specific injury or accident that she is aware of, was primarily worse at night, aching, intermittent intensity, also throbbing, shooting pain into the shoulders and occasionally into the lateral shoulders, upper arms, but may be just to the neck. The patient reports it awakens her from sleep at night at least once or twice, does not affect her bowel or bladder control, but does affect her ability to walk. She is having to hold her head more stiffly and turn her whole body to look directions instead of just her neck. The patient reports no loss of motor function, but significant stiffness. She has had some massage therapy done as well as a relative who is a massage therapist and has helped her to some extent. She has not had any formal physical therapies or other chiropractic treatments. She is taking hydrocodone, which helps by about 50% as well. The patient reports her disability rate from 0-10, 10 being the worst, is a 6 with self-care and 7 with life support activities. The patient reports it is throbbing, stabbing, again worse at night. 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 C7-T1 shows a moderately severe bilateral facet arthropathy as well with degenerative anterolisthesis of only 1 mm, otherwise no significant foraminal or central stenosis throughout. The patient reports the pain is worse with exercise activity, raising her arms over her head, again essentially equal right and left. The patient reports no loss of motor function in the upper extremities, tingling or paresthesias. PAST MEDICAL HISTORY: Significant for type 2 diabetes, hypertension, hypercholesterolemia, arthritis. PREVIOUS SURGERY: Include a hysterectomy and a left ORIF of the forearm. CURRENT MEDICATIONS: Include simvastatin, glimepiride, lisinopril, hydrocodone. ALLERGIES: The patient has no known drug allergies. FAMILY HISTORY: Significant for no major medical conditions or problems that she is aware of. SOCIAL HISTORY: The patient does not drink alcohol, does not smoke. She is , lives with her spouse, has 1 child living at home, lives locally in [place], [place], is currently retired. REVIEW OF SYSTEMS: The patient's review of systems is positive for those items mentioned in history of present illness. All systems reviewed and otherwise negative. It is completed in full, well documented on the patient's chart. PHYSICAL EXAMINATION: VITAL SIGNS: Today, blood pressure is 129/59, pulse 80, respirations 18, temperature 98.2 degrees Fahrenheit, height is 4 feet 10 inches and weight is 106 pounds. GENERAL: The patient is awake, alert, oriented, appropriate, very pleasant demeanor. The patient is accompanied by her daughter who translates Hmong to Tongan and vice versa as the patient does not speak Tongan. HEENT: Head shows normocephalic, atraumatic. Extraocular movements are intact and symmetrical. Oral cavity shows mucous membranes moist and pink. Dentition is intact. NECK: Shows anterior throat supple without palpable lymphadenopathy noted. Swallow reflex is symmetrical. CHEST: Shows normal on inspection. Breath sounds are clear to auscultation bilaterally. HEART: Shows S1 and S2 clear. No murmurs auscultated. ABDOMEN: Soft, nontender, nondistended. No palpable organomegaly is noted. No rebound or guarding demonstrated. BACK: The patient's back shows spine grossly in midline, normal-appearing cervical lordotic curvature, thoracic kyphotic curvature, and lumbar lordotic curvature. Cervical paraspinous musculature shows some symmetry with inspection on palpation shows very firm musculature bilaterally throughout the upper, middle, lower distribution of the paraspinous muscles without significant atrophy, hypertrophy without significant trigger points or radiation. Musculature is firm and moderately tender with palpation throughout. This is true in the superomedial trapezius as well as lateral trapezius somewhat, more on the right than the left, but essentially equal and symmetrical. The patient shows limited rotational motion and very guarded rotation, but can rotate to 45 degrees right and left with some very slow deliberate rotation as well as extension is very slow and deliberate as is forward flexion is slow and deliberate with a pulling sensation reported in the base of the neck via her daughter translating. Upper extremity showed deep tendon reflexes at 2+ in the biceps and triceps tendons. Motor exam is strong with marketing/sales person strength rated at 5/5 as is biceps and triceps flexion. The patient has well-healed surgical scar on the anterior aspect of the left forearm. Peripheral pulses are 2+ in the radial distribution. No peripheral edema is noted. Shoulder shrug is strong and intact as is abduction of shoulder is 90 degrees without loss of strength on resistance. IMPRESSION: 1. This is a 66-year-old female with approximately 5-6 months history of increasing neck pain, bilateral shoulders and upper extremities with some radicular qualities as well. 2. MRI scan of cervical spine as noted. 3. Type 2 diabetes. 4. Arthritis. PLAN: Options were discussed with the patient and her daughter regarding conservative medical management, physical therapy, interventional techniques and she has not had any conservative therapies done so far. We will start with physical therapy and order range of motion, a myofascial release positioning, retraining and ultrasound treatment of the cervical paraspinous musculature. Also, the patient was given Medrol Dosepak with instructions, side effects to be aware of. She was cautioned as to blood glucose levels during the time taking the medication. The patient understands and agrees and will follow up after physical therapy is started. We did discuss potential cervical epidural steroid injection as she may benefit from this in the future as well, but we will try physical therapy first and see how she feels once she has had a chance to start. JAMARCUS PEREA MD DR: PATRICK/jacob JOB#: [id number] / [id number] FRANKY Tse DO
== END | disposition home or self-care (01) ==
LOC: PNCL 09:28
PROVIDERS: ATTEND Anesthesiology
DX: M47.892 Other spondylosis, cervical region (principal); E11.9 Type 2 diabetes mellitus without complications; I10 Essential (primary) hypertension; E78.00 Pure hypercholesterolemia, unspecified
CPT/HCPCS: G0463